=== PATIENT | male | born 1945 | race Caucasian/White ===

== ENCOUNTER 2018-07-05 04:56 | Inpatient (IN) ==
[2018-07-05] MEDS ORDERED: KETOROLAC 15 MG/1 ML VIAL IV PRN (09:19)
[2018-07-05] MEDS ORDERED: HYDROmorphone 2 MG/1 ML VIAL IV PRN (09:19)
[2018-07-05] MEDS ORDERED: ONDANSETRON 4 MG/2 ML VIAL IV PRN (09:19)
[2018-07-05] MEDS ORDERED: PROMETHAZINE 25 MG/1 ML VIAL IM PRN (09:19)
[2018-07-05] MEDS ORDERED: ACETAMINOPHEN 325 MG TABLET PO PRN (09:19)
[2018-07-05] MEDS: LACTATED RINGERS 1,000 ML IV SCH ×2 (10:39→19:24)
[2018-07-05] MEDS: PANTOPRAZOLE 40 MG TABLET PO SCH (10:39)
[2018-07-05] MEDS ORDERED: PHENOL 1.4% THROAT SPRAY 177 ML BOTTLE PO PRN (19:38)
[2018-07-05] MEDS: ENOXAPARIN 40 MG/0.4 ML SYRINGE SUBCUT SCH (20:52)
[2018-07-06] MEDS: LACTATED RINGERS 1,000 ML IV SCH (02:46)
[2018-07-06 09:05] LABS: Basophils % 0.5 % (0.0-0.8); Eosinophils # 0.1 10*3/uL (0.0-0.87); Eosinophils % 2.1 % (0.00-10.9); Hematocrit 36.5 VOL% (42.0-52.0); Hemoglobin 12.1 GM/DL (14.0-18.0); Immature Granulocytes % 0.3 %; Immature Granulocytes Absolute 0.02 #; Lymphocytes # 0.9 10*3/uL (1.4-4.0); Lymphocytes % 13.6 % (21.2-54.2); Mean Corpuscular HGB Conc 33.2 GM/DL (32-36); Mean Corpuscular Hemoglobin 31 PG (27-34); Mean Corpuscular Volume 93.1 FL (87-102); Monocytes # 0.7 10*3/uL (0.11-0.8); Monocytes % 10.9 % (1.7-12.7); Neutrophils # 4.8 10*3/uL (1.4-7.4); Neutrophils % 72.6 % (38.7-73.9); Platelet Count 165 T/CUMM (130-400); Red Blood Count 3.92 MC/CUMM (3.8-5.5); Red Cell Distribution Width 12.4 % (9.3-17.3); White Blood Count 6.6 T/CUMM (4-12)
[2018-07-06] MEDS: PANTOPRAZOLE 40 MG TABLET PO SCH (09:18)
[2018-07-06 09:21] LABS: Calcium 8.5 MG/DL (8.5-10.1); Osmolality,Calculated 278.4 MOS/KG (273-304); Potassium 3.9 MMOL/L (3.5-5.1)
[2018-07-06] MEDS: DEXT 5% NACL 0.45% KCL 40 MEQ 40 MEQ/1,000 ML BAG IV SCH ×2 (09:57→22:31)
[2018-07-06] MEDS: ENOXAPARIN 40 MG/0.4 ML SYRINGE SUBCUT SCH (20:45)
[2018-07-07 07:39] VITALS: BP 152/80
[2018-07-07] MEDS: PANTOPRAZOLE 40 MG TABLET PO SCH (08:17)
[2018-07-07] MEDS ORDERED: INFLUENZA VIRUS VACCINE 0.5 ML SYRINGE IM ONE (09:19)
== END 2018-07-07 09:30 | disposition home or self-care (01) | DRG 390 ==
LOC: EDBD → EDUNIT# → N.ED 04:56 → N.EDINP 07:07 → N.3E 08:49
PROVIDERS: ADMIT Surgery; ATTEND Surgery